=== PATIENT | female | born 1965 | race Caucasian/White ===

== ENCOUNTER 2017-12-04 12:19 | Emergency (ER) | payer MEDICAID ==
[2017-12-04] MEDS: traMADol 50 MG TAB PO (13:20)
== END 2017-12-04 14:42 | disposition home or self-care (01) ==
LOC: FTE 12:19
DX: M25.561 Pain in right knee (principal); I10 Essential (primary) hypertension
CPT/HCPCS: 73562; 99283-25

== ENCOUNTER 2018-07-29 22:24 | Emergency (ER) | payer OTHER, MEDICAID | END 2018-07-30 01:38 | disposition home or self-care (01) | LOC: FTE 22:24 | DX: R22.1 Localized swelling, mass and lump, neck (principal); R22.32 Localized swelling, mass and lump, left upper limb; I10 Essential (primary) hypertension; Z79.01 Long term (current) use of anticoagulants; Z86.73 Personal history of transient ischemic attack (TIA), and cerebral infarction without residual deficits | CPT/HCPCS: 99282; Z7502 ==

== ENCOUNTER 2018-10-15 21:38 | Inpatient (IN) | payer MEDICARE, OTHER ==
[2018-10-15 22:09] LABS: ABNORMAL IP MESSAGE 1; HEMOGLOBIN 10.9 g/dl (12.0-16.0); MEAN CORPUSCULAR HEMOGLOBIN 21.3 pg (29.0-33.0); MEAN CORPUSCULAR HGB CONC 29.5 g/dl (32.0-37.0); MEAN CORPUSCULAR VOLUME 72.3 fl (82.0-101.0); MEAN PLATELET VOLUME 9.2 fl (7.4-10.4); PLATELET COUNT 392 10^3/UL (140-415)
[2018-10-15 22:09] LABS: WHITE BLOOD COUNT 6.5 10^3/ul (4.8-10.8)
[2018-10-15 22:24] LABS: ADD MAN DIFF? YES; POSITIVE DIFF @See below; RED BLOOD COUNT 5.12 10^6/ul (4.20-5.40)
[2018-10-15 22:26] LABS: ANION GAP 9 (5-13); BLOOD UREA NITROGEN 13 mg/dl (7-20); CALCIUM 9.2 mg/dl (8.4-10.2); CARBON DIOXIDE 26 mmol/L (21-31); CHLORIDE 105 mmol/L (97-110); CREATININE 0.62 mg/dl (0.44-1.00); Estimated GFR > 60 mL/min (>60); GLUCOSE 92 mg/dl (70-220); POTASSIUM 3.7 mmol/L (3.5-5.1); SODIUM 140 mmol/L (135-144)
[2018-10-15 22:29] LABS: INR 0.95; PROTIME 12.8 Sec (11.9-14.9)
[2018-10-15 22:30] LABS: PARTIAL THROMBOPLASTIN TIME 20.2 Sec (23.0-35.0)
[2018-10-15 22:53] LABS: ACANTHOCYTES 2+ (0-0); ANISOCYTOSIS 1+ (0-0); BAND NEUTROPHILS #M 0.2 10^3/ul (0.0-0.6); BAND NEUTROPHILS % (M) 4 % (0-4); BURR CELLS 2+ (0-0); EOSINOPHILS % (M) 4 % (0-7); HYPOCHROMASIA 1+ (0-0); LYMPHOCYTES #M 2.3 10^3/ul (0.8-2.9); LYMPHOCYTES % (M) 36 % (15-51); MICROCYTOSIS 1+ (0-0); MONOCYTE #M 0.5 10^3/ul (0.3-0.9); MONOCYTES % (M) 8 % (0-11); MYELOCYTES #M 0.1 10^3/ul (0.0-0.0); MYELOCYTES % (M) 3 % (0-0); OVALOCYTES 1+ (0-0); PLATELET ESTIMATE NORMAL; POIKILOCYTOSIS 3+ (0-0); POLYCHROMASIA 1+ (0-0); SEG NEUT #M 2.9 10^3/ul (1.6-7.5); SEGMENTED NEUTROPHILS (M) % 45 % (39-77); SMUDGE%M 3 % (0-0)
[2018-10-16] MEDS ORDERED: BISACODYL (EC) 5 MG TAB PO (01:00)
[2018-10-16] MEDS ORDERED: NACL 0.9% 3 ML SYG IV (01:00)
[2018-10-16] MEDS ORDERED: ONDANSETRON 4 MG INJ IV (01:00)
[2018-10-16] MEDS ORDERED: DOCUSATE SODIUM 100 MG CAP PO (01:00)
[2018-10-16] MEDS ORDERED: traMADol 50 MG TAB PO (01:00)
[2018-10-16] MEDS ORDERED: ACETAMINOPHEN 325 MG TAB PO (01:00)
[2018-10-16] MEDS ORDERED: hydrALAzine 20 MG INJ IV (01:30)
[2018-10-16 06:23] LABS: CHOLESTEROL 114 mg/dl (100-200); MAGNESIUM 1.9 mg/dl (1.7-2.5)
[2018-10-16 06:23] LABS: CHOL/HDL RATIO 2.7 RATIO; HDL CHOLESTEROL 42 mg/dl (37-92); LDL CHOLESTEROL,CALCULATED 62 mg/dl; TRIGLYCERIDES 51 mg/dl (0-149)
[2018-10-16 06:37] LABS: IRON 17 ug/dl (35-150)
[2018-10-16 06:46] LABS: % IRON SATURATION 5 % SAT (22-52); TOTAL IRON BINDING CAPACITY 338 ug/dl (241-421)
[2018-10-16 07:05] LABS: FERRITIN 15.7 ng/ml (11.1-264.0)
[2018-10-16 07:50] LABS: HEMOGLOBIN A1C 5.2 % (0-5.9)
[2018-10-16] MEDS: CLOPIDOGREL 75 MG TAB PO (08:22)
[2018-10-16] MEDS: LEVETIRACETAM 500 MG TAB PO ×3 (08:22→21:26)
[2018-10-16] MEDS: SERTRALINE 50 MG TAB PO (08:22)
[2018-10-16] MEDS: IOHEXOL 300MG/ML 150 ML BTL (10:22)
[2018-10-16] MEDS: SOD CHLORIDE 0.9% 100 ML (10:22)
[2018-10-16 11:27] LABS: ADD UMIC YES; UR ASCORBIC ACID NEGATIVE (NEGATIVE); UR BILIRUBIN (Dip) NEGATIVE (NEGATIVE); UR BLOOD (Dip) NEGATIVE (NEGATIVE); UR CLARITY CLEAR (CLEAR); UR COLOR YELLOW (YELLOW); UR GLUCOSE (Dip) NEGATIVE (NEGATIVE); UR KETONES (Dip) NEGATIVE (NEGATIVE); UR LEUKOCYTE ESTERASE (Dip) 2+ Leu/ul (NEGATIVE); UR NITRITE (Dip) NEGATIVE (NEGATIVE); UR RBC 0 /HPF (0-5); UR SPECIFIC GRAVITY (Dip) 1.011 (1.003-1.030); UR TOTAL PROTEIN (Dip) NEGATIVE (NEGATIVE); UR UROBILINOGEN (Dip) NEGATIVE (NEGATIVE); UR WBC 2 /HPF (0-5)
[2018-10-16 11:42] LABS: AMPHETAMINE/METHAMPHETAMINE Negative (NEGATIVE); BARBITURATES Negative (NEGATIVE); BENZODIAZEPINES Negative (NEGATIVE); CANNABINOIDS Negative (NEGATIVE); COCAINE Negative (NEGATIVE); OPIATES Negative (NEGATIVE)
[2018-10-16 15:47] LABS: OCCULT BLOOD STOOL NEGATIVE (NEGATIVE)
[2018-10-16] MEDS: ATORVASTATIN 80 MG TAB PO (21:26)
[2018-10-17 05:43] LABS: ABNORMAL IP MESSAGE 1; HEMATOCRIT 35.9 % (37.0-47.0); HEMOGLOBIN 10.9 g/dl (12.0-16.0); MEAN CORPUSCULAR HEMOGLOBIN 21.5 pg (29.0-33.0); MEAN CORPUSCULAR HGB CONC 30.4 g/dl (32.0-37.0); MEAN CORPUSCULAR VOLUME 70.9 fl (82.0-101.0); PLATELET COUNT 386 10^3/UL (140-415); RED BLOOD COUNT 5.06 10^6/ul (4.20-5.40)
[2018-10-17 05:51] LABS: ADD MAN DIFF? YES; POSITIVE DIFF @See below
[2018-10-17 06:18] LABS: ALANINE AMINOTRANSFERASE 39 IU/L (13-69); ALBUMIN 3.5 g/dl (3.3-4.9); ALBUMIN/GLOBULIN RATIO 1.06; ALKALINE PHOSPHATASE 96 IU/L (42-121); ANION GAP 6 (5-13); ASPARTATE AMINO TRANSFERASE 30 IU/L (15-46); BILIRUBIN,INDIRECT 0.4 mg/dl (0-1.1); BILIRUBIN,TOTAL 0.4 mg/dl (0.2-1.3); BLOOD UREA NITROGEN 13 mg/dl (7-20); CALCIUM 9.2 mg/dl (8.4-10.2); CARBON DIOXIDE 27 mmol/L (21-31); CHLORIDE 108 mmol/L (97-110); CREATININE 0.71 mg/dl (0.44-1.00); Estimated GFR > 60 mL/min (>60); GLUCOSE 92 mg/dl (70-220); POTASSIUM 4.4 mmol/L (3.5-5.1); SODIUM 141 mmol/L (135-144); TOTAL PROTEIN 6.8 g/dl (6.1-8.1)
[2018-10-17] MEDS: IOHEXOL 100 ML (07:47)
[2018-10-17] MEDS: SOD CHLORIDE 0.9% 100 ML (07:47)
[2018-10-17] MEDS: SERTRALINE 50 MG TAB PO (08:14)
[2018-10-17] MEDS: LEVETIRACETAM 500 MG TAB PO ×2 (08:14→20:07)
[2018-10-17] MEDS: CLOPIDOGREL 75 MG TAB PO (08:14)
[2018-10-17 09:22] LABS: ANISOCYTOSIS 2+ (0-0); BAND NEUTROPHILS #M 0.2 10^3/ul (0.0-0.6); BAND NEUTROPHILS % (M) 4 % (0-4); BASOPHILS % (M) 1 % (0-2); BURR CELLS 1+ (0-0); EOSINOPHILS % (M) 3 % (0-7); HYPOCHROMASIA 1+ (0-0); LYMPHOCYTES #M 1.9 10^3/ul (0.8-2.9); LYMPHOCYTES % (M) 32 % (15-51); MICROCYTOSIS 1+ (0-0); MONOCYTE #M 0.5 10^3/ul (0.3-0.9); MONOCYTES % (M) 9 % (0-11); MYELOCYTES % (M) 1 % (0-0); PLATELET ESTIMATE NORMAL; POIKILOCYTOSIS 2+ (0-0); REACTIVE LYMPHOCYTES% (M) 1 % (0-0); SEGMENTED NEUTROPHILS (M) % 49 % (39-77); SMUDGE%M 25 % (0-0); TARGET CELLS 1+ (0-0)
[2018-10-17] MEDS: ENOXAPARIN 40 MG/0.4 ML SYG SC (10:46)
[2018-10-17] MEDS: SOD FERRIC GLUC COMPLX 125 MG in SOD CHLORIDE 0.9% 100 ML IVPB (13:54)
[2018-10-17] MEDS: FERROUS SULFATE (EC) 325 MG TAB PO (20:07)
[2018-10-17] MEDS: ATORVASTATIN 80 MG TAB PO (20:07)
[2018-10-18] MEDS: CLOPIDOGREL 75 MG TAB PO (08:18)
[2018-10-18] MEDS: SERTRALINE 50 MG TAB PO (08:18)
[2018-10-18] MEDS: FERROUS SULFATE (EC) 325 MG TAB PO ×2 (08:18→20:25)
[2018-10-18] MEDS: LEVETIRACETAM 500 MG TAB PO ×2 (08:19→20:25)
[2018-10-18] MEDS: ENOXAPARIN 40 MG/0.4 ML SYG SC (08:21)
[2018-10-18] MEDS: ATORVASTATIN 80 MG TAB PO (20:25)
[2018-10-19] MEDS: SERTRALINE 50 MG TAB PO (08:30)
[2018-10-19] MEDS: CLOPIDOGREL 75 MG TAB PO (08:30)
[2018-10-19] MEDS: FERROUS SULFATE (EC) 325 MG TAB PO ×2 (08:30→20:57)
[2018-10-19] MEDS: LEVETIRACETAM 500 MG TAB PO ×2 (08:30→20:58)
[2018-10-19] MEDS: ENOXAPARIN 40 MG/0.4 ML SYG SC (08:37)
[2018-10-19] MEDS: ATORVASTATIN 80 MG TAB PO (21:02)
[2018-10-20 07:05] LABS: FREE THYROXINE INDEX (Calc) 2.39 ug/ml (0.65-3.89); T3 UPTAKE 29.1 % (23.5-40.5); T4 (THYROXINE) 8.2 ug/dl (5.5-11.0)
[2018-10-20 07:18] LABS: THYROID STIMULATING HORMONE 0.712 MIU/L (0.465-4.680)
[2018-10-20] MEDS: FERROUS SULFATE (EC) 325 MG TAB PO ×2 (08:59→20:06)
[2018-10-20] MEDS: CLOPIDOGREL 75 MG TAB PO (09:00)
[2018-10-20] MEDS: SERTRALINE 50 MG TAB PO (09:00)
[2018-10-20] MEDS: LEVETIRACETAM 500 MG TAB PO ×2 (09:00→20:05)
[2018-10-20] MEDS: ENOXAPARIN 40 MG/0.4 ML SYG SC (09:04)
[2018-10-20] MEDS: ATORVASTATIN 80 MG TAB PO (20:18)
[2018-10-21 06:18] LABS: ABNORMAL IP MESSAGE 1; HEMATOCRIT 35.1 % (37.0-47.0); HEMOGLOBIN 10.7 g/dl (12.0-16.0); MEAN CORPUSCULAR HEMOGLOBIN 21.8 pg (29.0-33.0); MEAN CORPUSCULAR HGB CONC 30.5 g/dl (32.0-37.0); MEAN CORPUSCULAR VOLUME 71.6 fl (82.0-101.0); MEAN PLATELET VOLUME 9.2 fl (7.4-10.4); PLATELET COUNT 351 10^3/UL (140-415)
[2018-10-21 06:18] LABS: WHITE BLOOD COUNT 5.5 10^3/ul (4.8-10.8)
[2018-10-21 06:25] LABS: POSITIVE DIFF @See below
[2018-10-21 06:26] LABS: ADD MAN DIFF? YES
[2018-10-21 06:52] LABS: ALBUMIN 3.4 g/dl (3.3-4.9); ANION GAP 4 (5-13); BLOOD UREA NITROGEN 7 mg/dl (7-20); CALCIUM 9.2 mg/dl (8.4-10.2); CARBON DIOXIDE 27 mmol/L (21-31); CHLORIDE 110 mmol/L (97-110); CREATININE 0.67 mg/dl (0.44-1.00); GLUCOSE 87 mg/dl (70-220); MAGNESIUM 1.9 mg/dl (1.7-2.5); PHOSPHORUS 3.7 mg/dl (2.5-4.9); SODIUM 141 mmol/L (135-144)
[2018-10-21 07:39] LABS: ACANTHOCYTES 1+ (0-0); ANISOCYTOSIS 1+ (0-0); BAND NEUTROPHILS #M 0.1 10^3/ul (0.0-0.6); BAND NEUTROPHILS % (M) 3 % (0-4); BURR CELLS 1+ (0-0); EOSINOPHILS % (M) 6 % (0-7); GIANT THROMBO% (M) 2 % (0-0); HYPOCHROMASIA 1+ (0-0); LYMPHOCYTES #M 1.7 10^3/ul (0.8-2.9); LYMPHOCYTES % (M) 31 % (15-51); MICROCYTOSIS 1+ (0-0); MONOCYTE #M 0.3 10^3/ul (0.3-0.9); MONOCYTES % (M) 6 % (0-11); OVALOCYTES 1+ (0-0); PLATELET ESTIMATE NORMAL; POIKILOCYTOSIS 2+ (0-0); POLYCHROMASIA 1+ (0-0); REACTIVE LYMPHOCYTES #M 0.4 10^3/ul (0.0-0.0); REACTIVE LYMPHOCYTES% (M) 8 % (0-0); SEG NEUT #M 2.5 10^3/ul (1.6-7.5); SEGMENTED NEUTROPHILS (M) % 46 % (39-77); SMUDGE%M 7 % (0-0); TARGET CELLS 1+ (0-0)
[2018-10-21] MEDS: FERROUS SULFATE (EC) 325 MG TAB PO ×2 (08:20→21:16)
[2018-10-21] MEDS: CLOPIDOGREL 75 MG TAB PO (08:21)
[2018-10-21] MEDS: LEVETIRACETAM 500 MG TAB PO ×2 (08:22→21:16)
[2018-10-21] MEDS: SERTRALINE 50 MG TAB PO (08:22)
[2018-10-21] MEDS: ENOXAPARIN 40 MG/0.4 ML SYG SC (08:27)
[2018-10-21] MEDS: LIDOCAINE 1% (MDV) 20 ML INJ (11:57)
[2018-10-21] MEDS: LIDOCAINE 2% (SDV) 5 ML INJ (16:46)
[2018-10-21] MEDS: ATORVASTATIN 80 MG TAB PO (22:33)
[2018-10-22] MEDS: LEVETIRACETAM 500 MG TAB PO (08:57)
[2018-10-22] MEDS: SERTRALINE 50 MG TAB PO (08:59)
[2018-10-22] MEDS: CLOPIDOGREL 75 MG TAB PO (08:59)
[2018-10-22] MEDS: FERROUS SULFATE (EC) 325 MG TAB PO (09:00)
[2018-10-22] MEDS: ENOXAPARIN 40 MG/0.4 ML SYG SC (09:08)
== END 2018-10-22 13:21 | disposition home or self-care (01) | DRG 41 ==
LOC: 6WM 10-16 00:53 → E/R 21:38
PROC: 0G9G3ZX Drainage of Left Thyroid Gland Lobe, Percutaneous Approach, Diagnostic (ICD-10-PCS; 2018-10-17)
PROC: 07B13ZX Excision of Right Neck Lymphatic, Percutaneous Approach, Diagnostic (ICD-10-PCS; principal; 2018-10-21)
DX: G93.49 Other encephalopathy (principal); G40.911 Epilepsy, unspecified, intractable, with status epilepticus; I69.351 Hemiplegia and hemiparesis following cerebral infarction affecting right dominant side; D50.9 Iron deficiency anemia, unspecified; I65.22 Occlusion and stenosis of left carotid artery; I89.8 Other specified noninfective disorders of lymphatic vessels and lymph nodes; E78.5 Hyperlipidemia, unspecified; E04.2 Nontoxic multinodular goiter; E78.00 Pure hypercholesterolemia, unspecified; I10 Essential (primary) hypertension; E03.9 Hypothyroidism, unspecified; I69.320 Aphasia following cerebral infarction; Z79.02 Long term (current) use of antithrombotics/antiplatelets
CPT/HCPCS: 36415; 70450; 70491; 70498; 70544; 70548; 70551; 76536; 76942; 80048; 80053; 80061; 80069; 80307; 81001; 82270; 82306; 82728; 83036; 83540; 83735; 84432; 84436; 84443; 84479; 85025; 85610; 85730; 86800; 87070; 87075; 87102; 87116; 88104; 88307; 88312; 88313; 92610; 93306; 93880; 97110; 97116; 97161; 97167; 97530; 97535; 99285-25; G0378

== ENCOUNTER 2018-10-23 09:05 | Inpatient (IN) | payer MEDICARE, OTHER ==
[2018-10-23] MEDS ORDERED: ONDANSETRON 4 MG INJ IV (10:30)
[2018-10-23] MEDS ORDERED: traMADol 50 MG TAB PO (10:30)
[2018-10-23] MEDS ORDERED: ACETAMINOPHEN 325 MG TAB PO (10:30)
[2018-10-23] MEDS ORDERED: ERGOCALCIFEROL 50,000 UNIT CAP PO (14:00)
[2018-10-23] MEDS: NACL 3% FOR INHALATION 15 ML NEBU NEB (14:29)
[2018-10-23] MEDS: NACL 0.9% 3 ML SYG IV (14:40)
[2018-10-23] MEDS: ATORVASTATIN 80 MG TAB PO (20:56)
[2018-10-23] MEDS: FERROUS SULFATE (EC) 325 MG TAB PO (20:56)
[2018-10-23] MEDS: LEVETIRACETAM 500 MG TAB PO (20:57)
[2018-10-24 07:34] LABS: ADD MAN DIFF? NO
[2018-10-24 07:44] LABS: WHITE BLOOD COUNT 5.9 10^3/ul (4.8-10.8)
[2018-10-24 07:44] LABS: ABNORMAL IP MESSAGE 1; BASOPHIL # 0.1 10^3/ul (0.0-0.1); BASOPHILS % 0.9 % (0.0-2.0); EOSINOPHILS # 0.2 10^3/ul (0.0-0.5); EOSINOPHILS % 3.6 % (0.0-7.0); HEMATOCRIT 36.6 % (37.0-47.0); HEMOGLOBIN 11.3 g/dl (12.0-16.0); LYMPHOCYTES # 1.7 10^3/ul (0.8-2.9); LYMPHOCYTES % 29.7 % (15.0-51.0); MEAN CORPUSCULAR HEMOGLOBIN 22.5 pg (29.0-33.0); MEAN CORPUSCULAR HGB CONC 30.9 g/dl (32.0-37.0); MEAN CORPUSCULAR VOLUME 72.9 fl (82.0-101.0); MEAN PLATELET VOLUME 9.4 fl (7.4-10.4); MONOCYTE # 0.4 10^3/ul (0.3-0.9); MONOCYTES % 7.5 % (0.0-11.0); NEUTROPHIL # 3.4 10^3/ul (1.6-7.5); PLATELET COUNT 357 10^3/UL (140-415); RED BLOOD COUNT 5.02 10^6/ul (4.20-5.40)
[2018-10-24 07:48] LABS: POSITIVE DIFF @See below
[2018-10-24 08:16] LABS: LACTATE DEHYDROGENASE 401 IU/L (313-618)
[2018-10-24 08:19] LABS: ANION GAP 9 (5-13); BLOOD UREA NITROGEN 9 mg/dl (7-20); CARBON DIOXIDE 24 mmol/L (21-31); CHLORIDE 107 mmol/L (97-110); CREATININE 0.57 mg/dl (0.44-1.00); Estimated GFR > 60 mL/min (>60); GLUCOSE 84 mg/dl (70-220); POTASSIUM 3.9 mmol/L (3.5-5.1); SODIUM 140 mmol/L (135-144)
[2018-10-24] MEDS: BENAZEPRIL 10 MG TAB PO (09:00)
[2018-10-24] MEDS: FERROUS SULFATE (EC) 325 MG TAB PO ×2 (09:35→21:11)
[2018-10-24] MEDS: SERTRALINE 50 MG TAB PO (09:36)
[2018-10-24] MEDS: CLOPIDOGREL 75 MG TAB PO (09:37)
[2018-10-24] MEDS: LEVETIRACETAM 500 MG TAB PO ×2 (09:37→21:12)
[2018-10-24] MEDS: ATORVASTATIN 80 MG TAB PO (21:11)
[2018-10-24 21:49] LABS: RAPID PLASMA REAGIN NONREACTIVE (NR)
[2018-10-25] MEDS: BENAZEPRIL 10 MG TAB PO (09:00)
[2018-10-25] MEDS: SERTRALINE 50 MG TAB PO (09:04)
[2018-10-25] MEDS: CLOPIDOGREL 75 MG TAB PO (09:04)
[2018-10-25] MEDS: LEVETIRACETAM 500 MG TAB PO (09:04)
[2018-10-25] MEDS: FERROUS SULFATE (EC) 325 MG TAB PO (09:04)
[2018-10-25 12:46] LABS: MYELOPEROXIDASE ANTIBODY <1.0 AI; PROTEINASE-3 ANTIBODY <1.0 AI
[2018-10-25 13:37] LABS: QUANTIFERON(R)-TB GOLD POSITIVE (NEGATIVE); TB-NIL 7.33 IU/mL; TB2-NIL 7.34 IU/mL
[2018-10-25 19:07] LABS: ANA SCREEN POSITIVE (NEGATIVE)
[2018-10-25 19:51] LABS: ANCA SCREEN NEGATIVE (NEGATIVE)
[2018-10-26 16:46] LABS: HISTOPLASMA GALACTOMANNAN AG U <0.5
[2018-10-28 19:31] LABS: ANA PATTERN SPECKLED
== END 2018-10-25 13:57 | disposition home or self-care (01) | DRG 607 ==
LOC: PP2 10-24 15:40 → E/R 09:05 → PP2 09:51
PROVIDERS: Family Medicine
DX: L92.9 Granulomatous disorder of the skin and subcutaneous tissue, unspecified (principal); I69.351 Hemiplegia and hemiparesis following cerebral infarction affecting right dominant side; R59.0 Localized enlarged lymph nodes; D50.9 Iron deficiency anemia, unspecified; E78.5 Hyperlipidemia, unspecified; G40.909 Epilepsy, unspecified, not intractable, without status epilepticus; I10 Essential (primary) hypertension; I65.22 Occlusion and stenosis of left carotid artery; I69.320 Aphasia following cerebral infarction; Z79.02 Long term (current) use of antithrombotics/antiplatelets
CPT/HCPCS: 71045; 71250; 80048; 82164; 83615; 85025; 85651; 86000; 86021; 86038; 86480; 86592; 86635; 86638; 87081; 87385; 89220; 94664; 97161; 97167; 99285-25